=== PATIENT | male | born 1940 | race Caucasian/White ===

== ENCOUNTER 2021-11-26 11:23 | Emergency (ER) | payer MEDICARE, MEDICAID ==
[~2021-11-26] VITALS: Ht 177.8 cm; Wt 100.0 kg
[2021-11-26] VITALS (8 sets, daily range): BP systolic 127–143; BP diastolic 76–91
[2021-11-26] MEDS ORDERED: PROAIR HFA IN (13:13)
[2021-11-26] MEDS ORDERED: ESCITALOPRAM OX10 MG PO (13:14)
[2021-11-26] MEDS ORDERED: PLAVIX75 MG PO (13:14)
[2021-11-26 13:17] LABS: HEMATOCRIT 44.5 % (39.0-50.0); HEMOGLOBIN 14.2 g/dl (14.0-18.0); IMMATURE GRANULOCYTES 0.3 % (0.0-5.0); MEAN CORPUSCULAR HGB 31.3 pG CALC (26.0-32.0); MEAN CORPUSCULAR HGB CONC 31.9 g/dL CAL (32.0-36.0); NEUT# 5.51 thou/uL (1.82-7.42); RED BLOOD COUNT 4.54 mill/uL (4.70-6.10); RED CELL DISTRI WIDTH 13.4 % (11.5-15.5)
[2021-11-26] MEDS ORDERED: FENOFIBRATE145 MG PO (13:17)
[2021-11-26] MEDS ORDERED: EZETIMIBE10 MG (13:18)
[2021-11-26] MEDS ORDERED: DILTIAZEM90 M1 PO (13:18)
[2021-11-26] MEDS ORDERED: ISOSORB MONO20 MG PO (13:19)
[2021-11-26] MEDS ORDERED: LISINOPRIL10 MG PO (13:19)
[2021-11-26] MEDS ORDERED: NEXIUM40 M1 PO (13:20)
[2021-11-26] MEDS ORDERED: TORSEMIDE20 M1 PO (13:20)
[2021-11-26 13:33] LABS: ALBUMIN 4.5 g/dL (3.2-5.0); ALKALINE PHOSPHATASE 52 u/l (38-126); AMYLASE 74 u/l (30-110); ANION GAP 12 (6-22 (CALC)); BILIRUBIN, TOTAL 0.7 mg/dL (0.0-1.4); BUN 21 mg/dL (8-23); BUN/CREATININE RATIO 20 (12-20 (CALC)); CARBON DIOXIDE 28 mmol/l (22-30); CHLORIDE 102 mmol/l (95-108); CREATININE 1.1 mg/dL (0.7-1.3); ETHYL ALCOHOL 0 mg/dl (0-30); GFR > 60 ML/MIN (>=60 (CALC)); GFR FOR AFR.AMER. > 60 ML/MIN (>=60 (CALC)); LIPASE 51 u/l (23-300); MAGNESIUM 2.1 mg/dL (1.6-2.3); POTASSIUM 3.9 mmol/l (3.5-5.1); SGOT/AST 23 u/l (19-48); SODIUM 139 mmol/l (137-146); TOTAL PROTEIN 7.6 g/dL (6.3-8.2)
[2021-11-26 13:34] LABS: ACT PARTIAL THROMBO TIME 25.8 SECONDS (20.0-32.5); PROTHROMBIN TIME 10.8 SECONDS (9.0-12.5)
[2021-11-26 14:55] LABS: URINE BILIRUBIN - DIPSTICK NEGATIVE (NEGATIVE); URINE BLOOD DIPSTICK NEGATIVE (NEGATIVE); URINE COLOR YELLOW; URINE GLUCOSE - DIPSTICK NEGATIVE (NEGATIVE); URINE KETONE NEGATIVE (NEGATIVE); URINE LEUK ESTERASE NEGATIVE (NEGATIVE); URINE PROTEIN - DIPSTICK NEGATIVE (NEG-TRACE); URINE SPECIFIC GRAVITY 1.025
[2021-11-26 14:56] LABS: URINE NITRITE - DIPSTICK NEGATIVE (Negative)
[2021-11-26] MEDS ORDERED: ZPAK PO (15:02)
[2021-11-26] MEDS ORDERED: TESSALON PERLE100 MG PO (15:02)
== END 2021-11-26 15:19 | disposition home or self-care (01) ==
LOC: ED 11:23
DX: S00.03XA Contusion of scalp, initial encounter (principal); J44.9 Chronic obstructive pulmonary disease, unspecified; I10 Essential (primary) hypertension; I48.91 Unspecified atrial fibrillation; I25.2 Old myocardial infarction; F17.210 Nicotine dependence, cigarettes, uncomplicated; W01.10XA Fall on same level from slipping, tripping and stumbling with subsequent striking against unspecified object, initial encounter; Y92.002 Bathroom of unspecified non-institutional (private) residence as the place of occurrence of the external cause; Z85.118 Personal history of other malignant neoplasm of bronchus and lung; Z85.46 Personal history of malignant neoplasm of prostate; Z79.01 Long term (current) use of anticoagulants; Z20.822 Contact with and (suspected) exposure to COVID-19